=== PATIENT | female | born 1940 | race American Indian/Alaskan Native ===

== ENCOUNTER 2019-04-09 12:15 | Day surgery (SDC) | payer MEDICARE ==
[2019-04-09] MEDS ORDERED: LACTATED RINGERS 1,000 ML IV SCH (12:45)
--- NOTE | 2019-04-09 13:34 | Anesthesia Consultation ---
Anesthesia Consult and Med Hx Date of service: 04/09/19 - Airway Anesthetic Teeth Evaluation: Dentures (permanent) ROM Head & Neck: Adequate Mental/Hyoid Distance: Adequate Mallampati Class: Class II Intubation Access Assessment: Good - Pulmonary Exam CTA: Yes - Cardiac Exam Cardiac Exam: RRR - Pre-Operative Health Status ASA Pre-Surgery Classification: ASA3 Proposed Anesthetic Plan: General (Hyperthyoidism, HTN , breast CA , Prior AVR 2006 - has medical clearance - for GA) - Pulmonary Hx Smoking: Yes (STOPPED X 10 YRS) Hx Sleep Apnea: No (CHRIS PRE SCREEN LOW RISK.) - Cardiovascular System Hx Hypertension: Yes (X 20 YRS) Hx Heart Attack/AMI: No Hx Peripheral Vascular Disease: Yes (WITH LEFT LEG PAIN) - Endocrine Hx Hyperthyroidism: Yes (ON DAILY MEDS)
[2019-04-09] MEDS ORDERED: ONDANSETRON 4 MG/2 ML INJ IV PRN (13:35)
[2019-04-09] MEDS ORDERED: HYDROmorphone 1 MG/1 ML INJ IV PRN (13:35)
--- NOTE | 2019-04-09 13:35 | Anesthesia Day of Surgery ---
Anesthesia Day of Surgery - Day of Surgery Patient Examined: Yes Patient H&P Reviewed: Yes Patient is NPO: Yes
[2019-04-09] MEDS ORDERED: ONDANSETRON 4 MG/2 ML INJ ONE (14:46)
[2019-04-09] MEDS ORDERED: fentaNYL 100 MCG/2 ML INJ ONE (14:47)
[2019-04-09] MEDS ORDERED: PROPOFOL 200 MG/20 ML VIAL IV ONE (14:47)
[2019-04-09] MEDS ORDERED: IOHEXOL 300 MG/ML 50ML IV ONE (15:12)
[2019-04-09] MEDS ORDERED: SODIUM CHLORIDE 0.9% 1000 ML 1,000 ML ONE (15:16)
[2019-04-09] MEDS ORDERED: ePHEDrine SULFATE 50 MG/1 ML INJ ONE (15:21)
[2019-04-09] MEDS ORDERED: PHENYLEPHRINE/NS 1,000 MCG/10 ML SYRINGE (OR USE) IV ONE (15:21)
[2019-04-09] MEDS ORDERED: cefTRIAXone/NS 1 GM/50 ML 1 GM/50 ML BAG IV NR (15:30)
--- NOTE | 2019-04-09 16:08 | Short Stay Summary ---
Short Stay Documentation Date of service: 04/09/19 - History H&P: obtained from office - Allergies and Medications Current Medications: Allergies No Known Allergies Allergy (Verified 04/01/19 18:20) Home Medications Medication Instructions Recorded Confirmed Last Taken Type Aspirin [Adult Aspirin] 81 mg PO DAILY 04/01/19 04/01/19 04/01/19 10:00 History Cholecalciferol (Vitamin D3) 2,000 unit PO QDAY 04/01/19 04/01/19 04/08/19 14:00 History [Vitamin D3 2,000 UNIT CAP] Methimazole [Tapazole] 10 mg PO DAILY 04/01/19 04/01/19 04/08/19 14:00 History Metoprolol Succinate [Toprol Xl] 100 mg PO DAILY 04/01/19 04/01/19 04/09/19 06:00 History Oxybutynin [Ditropan] 5 mg PO QHS 04/01/19 04/01/19 04/08/19 14:00 History Pentoxifylline [TRENtal] 400 mg PO BID 04/01/19 04/01/19 04/08/19 14:00 History Rosuvastatin Calcium [Crestor] 20 mg PO DAILY 04/01/19 04/01/19 04/08/19 14:00 History Tamoxifen Citrate 20 mg PO DAILY 04/01/19 04/01/19 04/08/19 14:00 History amLODIPine 5 mg PO DAILY 04/01/19 04/01/19 04/09/19 06:00 History HYDROcodone/APAP 5-325 [[place] 1 each PO Q4HR PRN #25 tablet 04/09/19 Unknown Rx 5-325 mg TAB] cefUROXime [Ceftin] 500 mg PO Q12H #20 tablet 04/09/19 Unknown Rx Active Medications Hydromorphone HCl (Dilaudid) 0.25 mg IV Q10MIN PRN PRN Reason: Pain, Moderate (4-6) Stop: 04/09/19 23:59 Lactated Ringer's (Lactated Ringers) 1,000 mls @ 100 mls/hr IV DIRECT MINDY Last Admin: 04/09/19 13:20 Dose: 100 mls/hr Documented by: Ceftriaxone Sodium (Rocephin/Ns 1 Gm/50 Ml) 1 gm in 50 mls @ 100 mls/hr IV PREOP NR; Protocol Stop: 04/09/19 21:00 Ondansetron HCl (Zofran) 4 mg IV ONCE PRN PRN Reason: Nausea And Vomiting - Brief post op/procedure progress note Date of procedure: 04/09/19 Pre-op diagnosis: Left hydro, uret stone 3 & 4mm Post-op diagnosis: same Procedure: cysto, viji rpg, left urs, laser inpacted stone, stent [id number] staged for future removal Anesthesia: GETA Findings: no signs of infection, left hydro w/ clear yellow urine aspirated, no debris, no suspicioun of infection; stone distal ureter seemed embedded/ sig into wall w/ edema; most stone laser into miniscule pieces, on few small frags from bladder sent Surgeon: JULIETTE WEBB Estimated blood loss: minimal Pathology: list (stone frags) Specimen disposition: to lab Condition: stable - Hospital course Hospital course: or pacu - Disposition Condition at discharge: Good Disposition: DC-01 TO HOME OR SELFCARE Short Stay Discharge Plan Activity: advance as tolerated Follow up with: JULIETTE WEBB MD [Staff Physician] - 7 Days Prescriptions: cefUROXime [Ceftin] 500 mg PO Q12H #20 tablet HYDROcodone/APAP 5-325 [[place] 5-325 mg TAB] 1 each PO Q4HR PRN #25 tablet PRN Reason: Pain
--- NOTE | 2019-04-09 16:19 | Post Anesthesia Evaluation ---
- Post Anesthesia Evaluation Patient Participated: Yes Airway Patent: Yes Stable Respiratory Function: Yes Nausea/Vomiting: No Temp > 96.8F: Yes Pain Manageable: Yes Adequeate Hydration: Yes Anesthesia Complications: No Block Receding Appropriately: Not Applicable Patient on Ventilator: No
[2019-04-09 17:04] VITALS: BP 159/72
--- NOTE | 2019-04-09 19:26 | Fluoroscopy Report ---
11 fluoroscopic images submitted Indication: Intraoperative localization Impression: 11 images of the abdomen were submitted for documentation purposes with radiology riki pulido. Bilateral retrograde pyelogram were performed with reported stone removal and placement of a left-sided double-J ureteral stent. Approximately 30 mL of Omnipaque 300 was used during the exam. Pl ease refer to the operative note for complete details. Fluoroscopic time: 2.2 minutes Signer Name: David Leigh MD Signed: 04/09/2019 7:22 PM Workstation Name: [id number]
--- NOTE | 2019-04-24 10:41 | Operative Report ---
PREOPERATIVE DIAGNOSIS: Left ____ mid distal ureteral stone ____. POSTOPERATIVE DIAGNOSIS: Left ____ mid distal ureteral stone ____. PROCEDURE: Left ureteroscopy, laser stone basket extraction, holmium laser ____. SURGEON: Sanjiv Montiel MD ANESTHESIA: General. ____ ESTIMATED BLOOD LOSS: Minimal. COMPLICATIONS: None. FINDINGS: Severely ____ left distal ureteral stone with significant edema mid to distal. CLINICAL INDICATIONS: Counseled ____ antibiotics, SCDs. The patient ____ ureteral stone on imaging. At this point, the patient was scheduled for this procedure, antibiotics, SCDs. DESCRIPTION OF PROCEDURE: The patient was transferred to OR suite in supine, anesthesia, dorsal lithotomy, prepped and draped in standard fashion. A 22-Surinamese scope passed. Pancystoscopy ____ retrograde pyelogram within normal limits. ____ [place]amese cone-tipped catheter, left retrograde demonstrated ____ filling defect ____. Glidewire was passed ____ this point up to the renal pelvis. Next, a rigid ureteroscope was passed. We did see a stone. The stone was very impacted, covered by edema, mucosa. At this point, holmium laser was passed. Stone was fragmented to very, very tiny pieces. Pieces that should be able to flush ____ passed more proximal and no significant residual stones were identified in the proximal ureter ____ UPJ. ____No significant stones ____. At this point, scope was withdrawn ____ double-J stent was passed under direct and fluoroscopic visualization. ____ bladder, bladder was drained. The patient awakened and transferred to the ____. JOB# [id number] ATS/NTS
== END 2019-04-09 12:16 | disposition home or self-care (01) ==
LOC: OR 12:15
PROVIDERS: ATTEND Urology
DX: N13.2 Hydronephrosis with renal and ureteral calculous obstruction (principal); I10 Essential (primary) hypertension; E78.00 Pure hypercholesterolemia, unspecified; E03.9 Hypothyroidism, unspecified; K21.9 Gastro-esophageal reflux disease without esophagitis; Z71.3 Dietary counseling and surveillance; Z79.82 Long term (current) use of aspirin; Z79.899 Other long term (current) drug therapy; Z87.891 Personal history of nicotine dependence; Z85.3 Personal history of malignant neoplasm of breast; Z98.890 Other specified postprocedural states
CPT/HCPCS: 36415; 52356; 74420; 82365; C1726; C1758; C1769; C2617; J0696; J2370; J2405; J2704; J3010; J7030; J7120; Q9967